=== PATIENT | male | born 1940 | race Caucasian/White ===

== ENCOUNTER → 2016-12-03 | Outpatient (CLI) | payer MEDICARE ==
[2016-12-03 08:18] LABS: BASO % 0.2 % (0.0-1.0); EOS # 0.6 10*3/uL (0.0-0.4); HEMATOCRIT 38.6 % (42.0-52.0); HEMOGLOBIN 12.6 g/dl (14.0-18.0); LYMPH # 1.6 10*3/uL (1.3-4.4); LYMPH % 29.7 % (27.0-41.0); MEAN CELL VOLUME 99.2 fl (80.0-94.0); MEAN CORPUSCULAR HGB 32.4 pg (27.0-31.0); MEAN CORPUSCULAR HGB CONC 32.6 g/dl (33.0-37.0); MEAN PLATELET VOLUME 10.8 fl (9.6-12.3); MONO # 0.2 10*3/uL (0.1-1.0); MONO % 3.5 % (3.0-9.0); NEUT % 55.4 % (47.0-73.0); PLATELET COUNT AUTOMATED 164 10*3/uL (130-400); RED BLOOD COUNT 3.89 10*6/uL (4.50-5.90); RED CELL DISTRI WIDTH 14.4 % (0-14.5); WHITE BLOOD COUNT 5.5 10*3/uL (4.8-10.8)
[2016-12-03 08:22] LABS: INTERNATIONAL NORM RATIO 1.3 (2.0-3.5); PROTHROMBIN TIME 13.7 SECONDS (9.0-12.4)
[2016-12-03 08:27] LABS: BUN 11 mg/dl (7-24); C-REACTIVE PROTEIN 1.37 MG/DL (0-0.3); EST GLOM FILT AFRICAN AMERICAN > 60 ml/min; SGOT/AST 19 IU/L (3-35)
[2016-12-03 08:29] LABS: SGPT/ALT 12 U/L (12-78)
== END | disposition home or self-care (01) ==
LOC: LAB 07:14
PROVIDERS: Internal Medicine
DX: I48.91 Unspecified atrial fibrillation (principal); R53.83 Other fatigue; M06.9 Rheumatoid arthritis, unspecified

== ENCOUNTER → 2016-12-29 | Outpatient (CLI) | payer MEDICARE ==
[2016-12-29 07:16] LABS: BASO # 0.1 10*3/uL (0.0-0.1); EOS # 0.7 10*3/uL (0.0-0.4); EOS % 12.7 % (1.0-4.0); HEMATOCRIT 36.9 % (42.0-52.0); HEMOGLOBIN 12.1 g/dl (14.0-18.0); LYMPH # 1.9 10*3/uL (1.3-4.4); LYMPH % 35.7 % (27.0-41.0); MEAN CORPUSCULAR HGB 32.8 pg (27.0-31.0); MEAN CORPUSCULAR HGB CONC 32.8 g/dl (33.0-37.0); MEAN PLATELET VOLUME 10.5 fl (9.6-12.3); MONO # 0.5 10*3/uL (0.1-1.0); MONO % 8.6 % (3.0-9.0); NEUT # 2.2 10*3/uL (2.3-7.9); NEUT % 41.8 % (47.0-73.0); PLATELET COUNT AUTOMATED 124 10*3/uL (130-400); RED BLOOD COUNT 3.69 10*6/uL (4.50-5.90); RED CELL DISTRI WIDTH 14.7 % (0-14.5); WHITE BLOOD COUNT 5.3 10*3/uL (4.8-10.8)
[2016-12-29 07:49] LABS: BUN 15 mg/dl (7-24); EST GLOM FILT AFRICAN AMERICAN > 60 ml/min; SGOT/AST 17 IU/L (3-35); SGPT/ALT 14 U/L (12-78)
[2016-12-29 07:50] LABS: C-REACTIVE PROTEIN < 0.29 MG/DL (0-0.3)
[2016-12-29 07:51] LABS: INTERNATIONAL NORM RATIO 1.5 (2.0-3.5); PROTHROMBIN TIME 16.7 SECONDS (9.0-12.4)
== END ==
LOC: LAB 06:52
PROVIDERS: Internal Medicine; Specialist
DX: I48.91 Unspecified atrial fibrillation (principal); R53.83 Other fatigue; M06.9 Rheumatoid arthritis, unspecified

== ENCOUNTER → 2017-03-25 | Outpatient (CLI) | payer MEDICARE ==
[2017-03-25 07:53] LABS: BASO % 0.8 % (0.0-1.0); BUN 12 mg/dl (7-24); CREATININE 0.67 mg/dL (0.70-1.30); EOS # 0.3 10*3/uL (0.0-0.4); EOS % 6.8 % (1.0-4.0); HEMOGLOBIN 11.5 g/dl (14.0-18.0); LYMPH # 1.6 10*3/uL (1.3-4.4); LYMPH % 33.7 % (27.0-41.0); MEAN CELL VOLUME 101.2 fl (80.0-94.0); MEAN CORPUSCULAR HGB 33.2 pg (27.0-31.0); MEAN CORPUSCULAR HGB CONC 32.9 g/dl (33.0-37.0); MEAN PLATELET VOLUME 10.9 fl (9.6-12.3); MONO # 0.3 10*3/uL (0.1-1.0); MONO % 6.6 % (3.0-9.0); NEUT # 2.5 10*3/uL (2.3-7.9); NEUT % 51.9 % (47.0-73.0); PLATELET COUNT AUTOMATED 142 10*3/uL (130-400); RED BLOOD COUNT 3.46 10*6/uL (4.50-5.90); RED CELL DISTRI WIDTH 14.3 % (0-14.5); SGOT/AST 24 IU/L (3-35); SGPT/ALT 14 U/L (12-78); WHITE BLOOD COUNT 4.8 10*3/uL (4.8-10.8)
[2017-03-25 07:57] LABS: INTERNATIONAL NORM RATIO 1.3 (2.0-3.5)
== END | disposition home or self-care (01) ==
LOC: LAB 06:51
PROVIDERS: Internal Medicine; Specialist
DX: I48.91 Unspecified atrial fibrillation (principal); R53.83 Other fatigue; M06.9 Rheumatoid arthritis, unspecified

== ENCOUNTER → 2017-05-19 | Outpatient (CLI) | payer MEDICARE ==
[2017-05-19 08:03] LABS: BASO % 0.6 % (0.0-1.0); EOS # 0.5 10*3/uL (0.0-0.4); EOS % 9.8 % (1.0-4.0); HEMATOCRIT 36.4 % (42.0-52.0); HEMOGLOBIN 12.2 g/dl (14.0-18.0); LYMPH # 1.5 10*3/uL (1.3-4.4); LYMPH % 29.3 % (27.0-41.0); MEAN CELL VOLUME 101.7 fl (80.0-94.0); MEAN CORPUSCULAR HGB 34.1 pg (27.0-31.0); MEAN CORPUSCULAR HGB CONC 33.5 g/dl (33.0-37.0); MONO # 0.3 10*3/uL (0.1-1.0); MONO % 5.2 % (3.0-9.0); NEUT # 2.9 10*3/uL (2.3-7.9); NEUT % 54.9 % (47.0-73.0); PLATELET COUNT AUTOMATED 148 10*3/uL (130-400); RED BLOOD COUNT 3.58 10*6/uL (4.50-5.90); RED CELL DISTRI WIDTH 14.6 % (0-14.5); WHITE BLOOD COUNT 5.2 10*3/uL (4.8-10.8)
[2017-05-19 08:36] LABS: ALBUMIN 3.5 gm/dl (3.1-4.5); BUN 16 mg/dl (7-24); CHLORIDE 103 mmol/L (98-107); CREATININE 0.78 mg/dL (0.70-1.30); POTASSIUM 4.5 mmol/L (3.5-5.1); SGOT/AST 24 IU/L (3-35); SGPT/ALT 22 U/L (12-78); SODIUM 139 mmol/L (136-145)
[2017-05-19 08:38] LABS: ALKALINE PHOSPHATASE 82 U/L (45-117); TOTAL PROTEIN 7.8 gm/dL (6.4-8.2)
[2017-05-19 08:49] LABS: INTERNATIONAL NORM RATIO 1.5 (2.0-3.5)
== END | disposition home or self-care (01) ==
LOC: LAB 06:59
PROVIDERS: Internal Medicine; Specialist
DX: I48.2 Chronic atrial fibrillation (principal); M19.90 Unspecified osteoarthritis, unspecified site; M06.9 Rheumatoid arthritis, unspecified; R53.83 Other fatigue; E55.9 Vitamin D deficiency, unspecified

== ENCOUNTER → 2017-06-26 | Outpatient (CLI) | payer MEDICARE ==
[2017-06-26 07:44] LABS: HEMATOCRIT 35.5 % (42.0-52.0); HEMOGLOBIN 11.8 g/dl (14.0-18.0); MEAN CELL VOLUME 99.4 fl (80.0-94.0); MEAN CORPUSCULAR HGB 33.1 pg (27.0-31.0); MEAN CORPUSCULAR HGB CONC 33.2 g/dl (33.0-37.0); MEAN PLATELET VOLUME 11.2 fl (9.6-12.3); PLATELET COUNT AUTOMATED 126 10*3/uL (130-400); RED BLOOD COUNT 3.57 10*6/uL (4.50-5.90); RED CELL DISTRI WIDTH 14.7 % (0-14.5); WHITE BLOOD COUNT 4.9 10*3/uL (4.8-10.8)
[2017-06-26 08:05] LABS: BUN 17 mg/dl (7-24); CREATININE 0.86 mg/dL (0.70-1.30); SGOT/AST 21 IU/L (3-35); SGPT/ALT 15 U/L (12-78)
[2017-06-26 08:11] LABS: INTERNATIONAL NORM RATIO 1.2 (2.0-3.5)
[2017-06-26 08:21] LABS: OVALOCYTES FEW; PLATELET SUFFICIENCY LOW (NORMAL); TOTAL CELLS COUNTED 100 #CELLS
== END | disposition home or self-care (01) ==
LOC: LAB 06:59
PROVIDERS: Specialist
DX: I48.91 Unspecified atrial fibrillation (principal); M06.9 Rheumatoid arthritis, unspecified; R53.83 Other fatigue

== ENCOUNTER → 2017-12-14 | Outpatient (CLI) | payer MEDICARE ==
[2017-12-14 08:11] LABS: BASO % 0.7 % (0.0-1.0); EOS # 0.6 10*3/uL (0.0-0.4); EOS % 9.5 % (1.0-4.0); HEMATOCRIT 40.2 % (42.0-52.0); HEMOGLOBIN 12.8 g/dl (14.0-18.0); LYMPH # 1.9 10*3/uL (1.3-4.4); LYMPH % 33.2 % (27.0-41.0); MEAN CORPUSCULAR HGB 31.2 pg (27.0-31.0); MEAN CORPUSCULAR HGB CONC 31.8 g/dl (33.0-37.0); MEAN PLATELET VOLUME 10.9 fl (9.6-12.3); MONO # 0.5 10*3/uL (0.1-1.0); MONO % 8.3 % (3.0-9.0); NEUT # 2.8 10*3/uL (2.3-7.9); NEUT % 48.1 % (47.0-73.0); PLATELET COUNT AUTOMATED 131 10*3/uL (130-400); WHITE BLOOD COUNT 5.8 10*3/uL (4.8-10.8)
[2017-12-14 08:37] LABS: BUN 14 mg/dl (7-24); CREATININE 0.85 mg/dL (0.70-1.30); SGOT/AST 15 IU/L (3-35); SGPT/ALT 13 U/L (12-78)
[2017-12-14 08:44] LABS: INTERNATIONAL NORM RATIO 2.4 (2.0-3.5)
== END | disposition home or self-care (01) ==
LOC: LAB 07:27
PROVIDERS: Physician Assistant; Specialist
DX: I48.91 Unspecified atrial fibrillation (principal); M06.9 Rheumatoid arthritis, unspecified; R53.83 Other fatigue

== ENCOUNTER → 2018-08-11 | Outpatient (CLI) | payer MEDICARE ==
[2018-08-11 08:13] LABS: BASO % 0.8 % (0.0-1.0); EOS # 0.2 10*3/uL (0.0-0.4); EOS % 3.8 % (1.0-4.0); HEMATOCRIT 35.1 % (42.0-52.0); HEMOGLOBIN 11.5 g/dl (14.0-18.0); LYMPH # 1.1 10*3/uL (1.3-4.4); LYMPH % 28.2 % (27.0-41.0); MEAN CELL VOLUME 101.7 fl (80.0-94.0); MEAN CORPUSCULAR HGB 33.3 pg (27.0-31.0); MEAN CORPUSCULAR HGB CONC 32.8 g/dl (33.0-37.0); MONO # 0.3 10*3/uL (0.1-1.0); MONO % 7.4 % (3.0-9.0); NEUT # 2.3 10*3/uL (2.3-7.9); NEUT % 59.5 % (47.0-73.0); PLATELET COUNT AUTOMATED 162 10*3/uL (130-400); RED BLOOD COUNT 3.45 10*6/uL (4.50-5.90); RED CELL DISTRI WIDTH 15.5 % (0-14.5); WHITE BLOOD COUNT 3.9 10*3/uL (4.8-10.8)
[2018-08-11 08:31] LABS: INTERNATIONAL NORM RATIO 2.3 (2.0-3.5)
[2018-08-11 08:40] LABS: ALBUMIN 3.1 gm/dl (3.1-4.5); ALKALINE PHOSPHATASE 91 U/L (45-117); BUN 15 mg/dl (7-24); CHLORIDE 106 mmol/L (98-107); CREATININE 0.86 mg/dL (0.70-1.30); SGOT/AST 29 IU/L (3-35); SGPT/ALT 23 U/L (12-78); SODIUM 140 mmol/L (136-145); TOTAL PROTEIN 7.3 gm/dL (6.4-8.2)
== END | disposition home or self-care (01) ==
LOC: LAB 07:38
PROVIDERS: Physician Assistant; Specialist
DX: I48.91 Unspecified atrial fibrillation (principal); M06.9 Rheumatoid arthritis, unspecified; R53.83 Other fatigue

== ENCOUNTER → 2018-12-07 | Outpatient (CLI) | payer MEDICARE ==
[2018-12-07 07:36] LABS: BASO # 0.1 10*3/uL (0.0-0.1); BASO % 0.9 % (0.0-1.0); EOS # 0.4 10*3/uL (0.0-0.4); EOS % 6.5 % (1.0-4.0); HEMATOCRIT 37.1 % (42.0-52.0); HEMOGLOBIN 11.8 g/dl (14.0-18.0); LYMPH # 1.5 10*3/uL (1.3-4.4); LYMPH % 26.1 % (27.0-41.0); MEAN CELL VOLUME 99.2 fl (80.0-94.0); MEAN CORPUSCULAR HGB 31.6 pg (27.0-31.0); MEAN CORPUSCULAR HGB CONC 31.8 g/dl (33.0-37.0); MEAN PLATELET VOLUME 10.7 fl (9.6-12.3); MONO # 0.5 10*3/uL (0.1-1.0); MONO % 8.1 % (3.0-9.0); NEUT # 3.3 10*3/uL (2.3-7.9); NEUT % 58.2 % (47.0-73.0); PLATELET COUNT AUTOMATED 146 10*3/uL (130-400); RED BLOOD COUNT 3.74 10*6/uL (4.50-5.90); RED CELL DISTRI WIDTH 15.6 % (0-14.5); WHITE BLOOD COUNT 5.7 10*3/uL (4.8-10.8)
[2018-12-07 07:58] LABS: BUN 18 mg/dl (7-24); SGOT/AST 19 IU/L (3-35); SGPT/ALT 14 U/L (12-78)
== END | disposition home or self-care (01) ==
LOC: LAB 07:02
PROVIDERS: Specialist
DX: M06.9 Rheumatoid arthritis, unspecified (principal); R53.83 Other fatigue

== ENCOUNTER → 2019-02-03 | Outpatient (CLI) | payer MEDICARE ==
[2019-02-03 07:55] LABS: BASO # 0.1 10*3/uL (0.0-0.1); EOS # 0.3 10*3/uL (0.0-0.4); EOS % 6.7 % (1.0-4.0); HEMATOCRIT 37.6 % (42.0-52.0); HEMOGLOBIN 12.1 g/dl (14.0-18.0); LYMPH # 1.5 10*3/uL (1.3-4.4); LYMPH % 31.2 % (27.0-41.0); MEAN CELL VOLUME 100.8 fl (80.0-94.0); MEAN CORPUSCULAR HGB 32.4 pg (27.0-31.0); MEAN CORPUSCULAR HGB CONC 32.2 g/dl (33.0-37.0); MEAN PLATELET VOLUME 10.7 fl (9.6-12.3); MONO # 0.4 10*3/uL (0.1-1.0); MONO % 8.9 % (3.0-9.0); NEUT # 2.6 10*3/uL (2.3-7.9); PLATELET COUNT AUTOMATED 180 10*3/uL (130-400); RED BLOOD COUNT 3.73 10*6/uL (4.50-5.90); RED CELL DISTRI WIDTH 15.8 % (0-14.5); WHITE BLOOD COUNT 4.9 10*3/uL (4.8-10.8)
[2019-02-03 08:17] LABS: BUN 18 mg/dl (7-24); CREATININE 0.81 mg/dL (0.70-1.30); SGOT/AST 19 IU/L (3-35); SGPT/ALT 14 U/L (12-78)
== END | disposition home or self-care (01) ==
LOC: LAB 07:02
PROVIDERS: Specialist
DX: I48.91 Unspecified atrial fibrillation (principal); M06.9 Rheumatoid arthritis, unspecified; R53.83 Other fatigue